=== PATIENT | male | born 1985 | race Caucasian/White ===

== ENCOUNTER 2018-09-05 16:54 | Emergency (ER) | payer OTHER ==
[~2018-09-05] VITALS: Ht 188 cm; Wt 95.5 kg
[2018-09-05] MEDS ORDERED: LIDOCAINE 1% MDV 20ML VIAL IM ONE (17:30)
[2018-09-05] MEDS ORDERED: AUGMENTIN 875 MG TAB PO ONE (17:30)
[2018-09-05] MEDS ORDERED: AUGM875T28 PO (17:57)
[2018-09-05 18:02] VITALS: BP 144/81
== END 2018-09-05 18:00 | disposition home or self-care (01) ==
LOC: M ED 16:54
DX: S61.451A Open bite of right hand, initial encounter (principal); W54.0XXA Bitten by dog, initial encounter; Y92.009 Unspecified place in unspecified non-institutional (private) residence as the place of occurrence of the external cause; Y93.89 Activity, other specified

== ENCOUNTER 2018-09-13 18:58 | Emergency (ER) | payer OTHER ==
[~2018-09-13] VITALS: Ht 190.5 cm; Wt 95.5 kg
[~2018-09-13 18:58] MED LIST: AUGM875T28 PO
[2018-09-13] MEDS ORDERED: RABIES VACCINE HUMAN 2.5 INTERNATIONAL UNITS/ML VIAL (90675) IM ONE (19:15)
[2018-09-13 19:47] VITALS: BP 134/67
== END 2018-09-13 19:53 | disposition home or self-care (01) ==
LOC: M ED 18:58
DX: Z23 Encounter for immunization (principal); Z20.3 Contact with and (suspected) exposure to rabies; S61.451D Open bite of right hand, subsequent encounter; W54.0XXD Bitten by dog, subsequent encounter; Y92.138 Other place on military base as the place of occurrence of the external cause; Z79.2 Long term (current) use of antibiotics